=== PATIENT | female | born 1985 | race Caucasian/White ===

== ENCOUNTER 2023-07-24 06:03 | Day surgery (SDC) | payer OTHER ==
[2023-07-20 10:19] VITALS: BMI 19.5
[2023-07-24] MEDS ORDERED: Ondansetron PF 4 MG/2 ML Vial ONE (07:08)
[2023-07-24] MEDS ORDERED: Midazolam HCl 2 mg/2 ml Vial ONE (07:09)
[2023-07-24] MEDS ORDERED: PROPOFOL 20 ML ONE ×4 (07:09→08:03)
[2023-07-24] MEDS ORDERED: Lidocaine 1% PF 5 ML VIAL ONE (07:32)
== END 2023-07-24 08:55 | disposition home or self-care (01) ==
LOC: CSHSDC 06:03
PROVIDERS: ATTEND Internal Medicine Gastroenterology
PROC: 0DBN8ZZ Excision of Sigmoid Colon, Via Natural or Artificial Opening Endoscopic (ICD-10-PCS; principal; 2023-07-24)
DX: Z12.11 Encounter for screening for malignant neoplasm of colon (principal); K63.5 Polyp of colon; K64.9 Unspecified hemorrhoids; Z88.1 Allergy status to other antibiotic agents; Z86.010 Personal history of colon polyps; Z88.6 Allergy status to analgesic agent; Z91.040 Latex allergy status
CPT/HCPCS: 88305; J2250; J2405; J2704